=== PATIENT | female | born 1990 | race African-American/Black ===

== ENCOUNTER 2021-09-02 00:16 | Emergency (ER) | payer OTHER ==
[~2021-09-02] VITALS: Ht 152.4 cm; Wt 83.0 kg
[2021-09-02 00:16] VITALS: BP 96/51
[2021-09-02 01:49] LABS: Eosinophils # (auto) 0.1 10 ^3/uL (0-0.8); Eosinophils % (auto) 1.2 % (0.0-7.0); Lymphocytes # (auto) 1.7 10 ^3/uL (0.4-5.4); Mean Corpuscular Hemoglobin 29.7 pg (28.0-32.0); Monocytes # (auto) 0.6 10 ^3/uL (0-1.3); Neutrophils # (auto) 2.6 10 ^3/uL (1.6-8.6); Nucleated Red Blood Cells % 0.1 %; Red Cell Distribution Width 13.6 % (11.8-14.3)
[2021-09-02 01:51] LABS: Basophils # (auto) 0 10 ^3/uL (0-0.2); Basophils % (auto) 0.8 % (0.0-2.0); Hematocrit 33.7 % (36.0-46.0); Lymphocytes % (auto) 33.6 % (10.0-50.0); Mean Corpuscular Hgb Conc. 32.5 g/dL (32.0-36.0); Mean Corpuscular Volume 91.5 fL (80.0-100.0); Monocytes % (auto) 11.5 % (0.0-12.0); Neutrophils % (auto) 52.9 % (37.0-80.0); Red Blood Cells 3.69 10^6/uL (4.0-5.20)
[2021-09-02 02:02] LABS: Albumin 4.1 g/dL (3.4-5.0); BUN/Creatinine Ratio 10.2; Potassium 3.7 mmol/L (3.5-5.1)
[2021-09-02 02:04] LABS: Bilirubin, Total 0.4 mg/dL (0.2-1.0); Total Protein 8.4 g/dL (6.4-8.2)
[2021-09-02 02:12] LABS: Urine Bacteria NONE SEEN /hpf (None Seen); Urine Blood 3+ /uL (Negative); Urine Mucus FEW (None Seen); Urine WBC 385 /hpf (0 - 5)
[2021-09-02 02:15] LABS: Urine Specific Gravity 1.035 (1.001-1.035)
== END 2021-09-02 13:47 | disposition left against medical advice (07) ==
LOC: ER 00:16
DX: N93.9 Abnormal uterine and vaginal bleeding, unspecified (principal); R10.2 Pelvic and perineal pain; Z53.21 Procedure and treatment not carried out due to patient leaving prior to being seen by health care provider
CPT/HCPCS: 36415; 76830; 76856; 80053; 81001; 84702; 85025; 86850; 86900; 86901